=== PATIENT | male | born 2005 | race Caucasian/White ===

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

== ENCOUNTER 2023-03-25 14:28 | Outpatient (REF) | payer SELFPAY ==
--- OUTSIDE RECORDS SUMMARY | 2023-03-25 14:30 | XMS_ITS | Continuity of Care Document ---
Author Name Unknown Organization [facility] Address [address] [place] [address] Care Team Providers Care [employer]ic Name Role Phone [address] Primary Care Physician Encounter [facility] Date(s): 07/06/22 - 07/06/[address] [id number] Encounter Diagnosis Nerve compression syndrome(Discharge Diagnosis) - 07/06/22 Discharge Disposition: Home or Self Care Attending Physician: Horacio Terrazas MD Admitting Physician: Horacio Terrazas MD Allergies, Adverse Reactions, Alerts No Known Medication Allergies Functional Status 07/06/22 Family Member Travel History No recent t ravel Recent Travel History No recent travel Other exposure to Infectious Disease Non e Immunizations Given and Recorded Vaccine Date Status Refusal Reason meningococcal conjugate vaccine 03/19/20 Recorded meningococcal conjugate vaccine 11/08/14 Recorded human papillomavirus vaccine 03/09/18 Recorded human papillomavirus vaccine 11/13/15 Recorded tetanus/diphth/pertuss (Tdap) adult/adol 11/08/14 Recorded influenza virus vaccine, live 05/24/13 Recorded influenza virus vaccine, live 04/22/12 Recorded influenza virus vaccine, inactivated 03/27/10 Juliano rded influenza virus vaccine, inactivated 07/06/06 Juliano rded influenza virus vaccine, inactivated 05/27/06 Jluiano rded influenza virus vaccine, inactivated 03/18/05 Juliano rded Novel [id number], all formulation 05/21/09 Recorded diphtheria/pertussis, acellular/tetanus 08/16/08 R ecorded diphtheria/pertussis, acellular/tetanus 11/19/04 R ecorded poliovirus vaccine, inactivated 08/16/08 Recorded measles/mumps/rubella virus vaccine 08/08/07 Recor ded measles/mumps/rubella virus vaccine 04/29/04 Recor ded varicella virus vaccine 08/08/07 Recorded varicella virus vaccine 09/16/04 Recorded haemophilus b conjugate (PRP-T) vaccine 11/19/04 R ecorded haemophilus b conjugate (PRP-T) vaccine 03 R ecorded haemophilus b conjugate (PRP-T) vaccine 03 R ecorded haemophilus b conjugate (PRP-T) vaccine 03 R ecorded pneumococcal 7-valent vaccine 09/16/04 Recorded pneumococcal 7-valent vaccine 01/23/04 Recorded pneumococcal 7-valent vaccine 03 Recorded pneumococcal 7-valent vaccine 03 Recorded diphth/tetanus/pertussis,acel/hepB/polio 03 Recorded diphth/tetanus/pertussis,acel/hepB/polio 03 Recorded diphth/tetanus/pertussis,acel/hepB/polio 03 Recorded hepatitis B pediatric vaccine 03 Recorded Vital Signs Most recent to oldest [Reference Range]: 1 Temperature Temporal Artery [36-38 Deg C ] 36.8 Deg C (07/06/22 4:59 PM) Peripheral Pulse Rate [60-100 bpm] 66 bp m (07/06/22 4:59 PM) Respiratory Rate [12-24 br/min] 16 br/mi n (07/06/22 4:59 PM) Blood Pressure [90-140/60-90 mmHg] 140/7 6mmHg (07/06/22 4:59 PM) Weight 80.00 kg (07/06/22 4:59 PM) Weight Dosing 80.00 kg (07/06/22 5:07 PM) Height 177.000 cm (07/06/22 4:59 PM) Height/Length Dosing 177.000 cm (07/06/22 5:07 PM) Body Mass Index 26.000 kg/m2 (07/06/22 4:59 PM) Body Mass Index Percentile 82.43 1 (07/06/22 4:59 PM) 1Result Comment: ^~:!Percentile Source -CDC Social History Social History Type Response Tobacco Never tobacco user T obacco Use:. Sex Male Hospital Discharge Instructions Patient Education 07/06/2022 18:37:31 Pinched Nerve Pinched Nerve A pinched nerve is an injury that occurs when too much pressure is placed on a nerve. This pressurecan cause pain, burning, and muscle weakness in places that the nerve supplies feeling to, such as an arm, hand, or leg, or the back or neck. If a nerve is severely pinched or has been pinched for a long time, permanent nerve damage can occur. What are the causes? This condition may be caused by: ??? A nerve passing through a narrow area between bones or other body structures. ??? Arthritis that causes bones to press on a nerve. ??? Loss of blood supply to a nerve. ??? A nerve being stretched from an injury. ??? A sudden injury with swelling. ??? Long-term wear on the nerve. ??? Age-related changes in the spine. What are the signs or symptoms? The most common symptoms of a pinched nerve are feeling a tingling sensation and numbness. Other symptoms include: ??? Pain that spreads from one area of the body part to another. ??? A burning feeling. ??? Muscle weakness. How is this diagnosed? This condition may be diagnosed based on: ??? A physical exam. During the exam, your health care provider will: ??? Check for numbness and muscle weakness. ??? Move affected body parts to test for pain. ??? X-rays to check for bone damage. ??? A MRI or CT scan to check for conditions that may be causing nerve damage. ??? A muscle test (electromyogram, EMG) to evaluate how your muscles and nerves communicate. How is this treated? A pinched nerve is usually treated first by: ??? Resting the affected body area. ??? Using devices to help you move without pain (supportive or protective devices), such as a splint, brace, or neck collar. Other treatments depend on your symptoms and the amount of nerve damage you have. Other treatments may include: ??? Medicines, such as: ??? Injections of numbing medicine. ??? NSAIDs. ??? Pain medicines. ??? Steroid medicines. These may be given as a pill or as an injection. ??? Physical therapy to relieve pain, maintain movement, and improve muscle strength. ??? Surgery. This may be done if other treatments do not work. Follow these instructions at home: ??? Take kbic-amh-bdfxalh and prescription medicines only as told by your health care provider. ??? Wear supportive or protective devices as told by your health care provider. ??? Do physical therapy exercises as directed. ??? Ask your health care provider what activities are safe for you. ??? Rest as needed. ??? If directed, put ice on the affected area: ??? Put ice in a plastic bag. ??? Place a towel between your skin and the bag. ??? Leave the ice on for 20 minutes, 2???3 times a day. ??? If directed, apply heat to the affected area. Use the heat source that your health care provider recommends, such as a moist heat pack or a heating pad. ??? Place a towel between your skin and the heat source. ??? Leave the heat on for 20???30 minutes. ??? Remove the heat if your skin turns bright red. This is especially important if you are unable to feel pain, heat, or cold. You may have a greater risk of getting burned. ??? Do not drive or use heavy machinery while taking prescription pain medicine. ??? Keep all follow-up visits as told by your health care provider. This is important. Contact a health care provider if: ??? Your condition does not improve with treatment. ??? Your pain, numbness, or weakness suddenly gets worse. Get help right away if you: ??? Have loss of bladder control (urinary incontinence) or you cannot urinate. ??? Cannot control bowel movements (fecal incontinence). ??? Have new weakness in your arms or legs. Summary ??? A pinched nerve is an injury that occurs when too much pressure is placed on a nerve. ??? This pressure can cause pain, burning, and muscle weakness in places that the nerve supplies feeling to, such as an arm, hand, or leg, or the back or neck. ??? Take qkfl-zqd-gylibes and prescription medicines only as told by your health care provider. ??? Ask your health care provider what activities are safe for you while you are having symptoms. This information is not intended to replace advice given to you by your health care provider. Make sure you discuss any questions you have with your health care provider. Document Revised: 06/10/2018 Document Reviewed: 06/07/2018 [email or web address] Patient Education ?? 2021 [employer]. 07/06/2022 18:37:27 Peripheral Neuropathy Peripheral Neuropathy Peripheral neuropathy is a type of nerve damage. It affects nerves that carry signals between the spinal cord and the arms, legs, and the rest of the body (peripheral nerves). It does not affect nerves in the spinal cord or brain. In peripheral neuropathy, one nerve or a group of nerves may be damaged. Peripheral neuropathy is a broad category that includes many specific nerve disorders, like diabetic neuropathy, hereditary neuropathy, and carpal tunnel syndrome. What are the causes? This condition may be caused by: ??? Diabetes. This is the most common cause of peripheral neuropathy. ??? Nerve injury. ??? Pressure or stress on a nerve that lasts a long time. ??? Lack (deficiency) of B vitamins. This can result from alcoholism, poor diet, or a restricted diet. ??? Infections. ??? Autoimmune diseases, such as rheumatoid arthritis and systemic lupus erythematosus. ??? Nerve diseases that are passed from parent to child (inherited). ??? Some medicines, such as cancer medicines (chemotherapy). ??? Poisonous (toxic) substances, such as lead and mercury. ??? Too little blood flowing to the legs. ??? Kidney disease. ??? Thyroid disease. In some cases, the cause of this condition is not known. What are the signs or symptoms? Symptoms of this condition depend on which of your nerves is damaged. Common symptoms include: ??? Loss of feeling (numbness) in the feet, hands, or both. ??? Tingling in the feet, hands, or both. ??? Burning pain. ??? Very sensitive skin. ??? Weakness. ??? Not being able to move a part of the body (paralysis). ??? Muscle twitching. ??? Clumsiness or poor coordination. ??? Loss of balance. ??? Not being able to control your bladder. ??? Feeling dizzy. ??? Sexual problems. How is this diagnosed? Diagnosing and finding the cause of peripheral neuropathy can be difficult. Your health care provider will take your medical history and do a physical exam. A neurological exam will also be done. This involves checking things that are affected by your brain, spinal cord, and nerves (nervous system). For example, your health care provider will check your reflexes, how you move, and what you can feel. You may have other tests, such as: ??? Blood tests. ??? Electromyogram (EMG) and nerve conduction tests. These tests check nerve function and how well the nerves are controlling the muscles. ??? Imaging tests, such as CT scans or MRI to rule out other causes of your symptoms. ??? Removing a small piece of nerve to be examined in a lab (nerve biopsy). ??? Removing and examining a small amount of the fluid that surrounds the brain and spinal cord (lumbar puncture). How is this treated? Treatment for this condition may involve: ??? Treating the underlying cause of the neuropathy, such as diabetes, kidney disease, or vitamin deficiencies. ??? Stopping medicines that can cause neuropathy, such as chemotherapy. ??? Medicine to help relieve pain. Medicines may include: ??? Prescription or sgaq-quk-crlzklg pain medicine. ??? Antiseizure medicine. ??? Antidepressants. ??? Pain-relieving patches that are applied to painful areas of skin. ??? Surgery to relieve pressure on a nerve or to destroy a nerve that is causing pain. ??? Physical therapy to help improve movement and balance. ??? Devices to help you move around (assistive devices). Follow these instructions at home: Medicines ??? Take mrta-jnu-mxevzqb and prescription medicines only as told by your health care provider. Do not take any other medicines without first asking your health care provider. ??? Do not drive or use heavy machinery while taking prescription pain medicine. Lifestyle ??? Do not use any products that contain nicotine or tobacco, such as cigarettes and e-cigarettes. Smoking keeps blood from reaching damaged nerves. If you need help quitting, ask your health care provider. ??? Avoid or limit alcohol. Too much alcohol can cause a vitamin B deficiency, and vitamin B is needed for healthy nerves. ??? Eat a healthy diet. This includes: ??? Eating foods that are high in fiber, such as fresh fruits and vegetables, whole grains, and beans. ??? Limiting foods that are high in fat and processed sugars, such as fried or sweet foods. General instructions ??? If you have diabetes, work closely with your health care provider to keep your blood sugar under control. ??? If you have numbness in your feet: ??? Check every day for signs of injury or infection. Watch for redness, warmth, and swelling. ??? Wear padded socks and comfortable shoes. These help protect your feet. ??? Develop a good support system. Living with peripheral neuropathy can be stressful. Consider talking with a mental health specialist or joining a support group. ??? Use assistive devices and attend physical therapy as told by your health care provider. This may include using a walker or a cane. ??? Keep all follow-up visits as told by your health care provider. This is important. Contact a health care provider if: ??? You have new signs or symptoms of peripheral neuropathy. ??? You are struggling emotionally from dealing with peripheral neuropathy. ??? Your pain is not well-controlled. Get help right away if: ??? You have an injury or infection that is not healing normally. ??? You develop new weakness in an arm or leg. ??? You have fallen or do so frequently. Summary ??? Peripheral neuropathy is when the nerves in the arms, or legs are damaged, resulting in numbness, weakness, or pain. ??? There are many causes of peripheral neuropathy, including diabetes, pinched nerves, vitamin deficiencies, autoimmune disease, and hereditary conditions. ??? Diagnosing and finding the cause of peripheral neuropathy can be difficult. Your health care provider will take your medical history, do a physical exam, and do tests, including blood tests and nerve function tests. ??? Treatment involves treating the underlying cause of the neuropathy and taking medicines to helpcontrol pain. Physical therapy and assistive devices may also help. This information is not intended to replace advice given to you by your health care provider. Make sure you discuss any questions you have with your health care provider. Document Revised: 03/04/2021 Document Reviewed: 03/04/2021 [employer] Patient Education ?? 2021 [email or web address] Follow Up Care 07/06/2022 16:59:09 With:[address] Address: [address] [place] [address]- When:1 month Physician Emergency department Note * Fab Chris MD: PERFORM Event Display: ED Note Physician Authored Date: [id number] JASPREET ALVARADO :2005 Age:17 years Sex:Male Visit Date:07/06/2022 Primary Care Physician: Km [address] Basic Information Time Seen: Fab Chris MD / 07/06/2022 17:08 Chief Complaint Right arm pain since waking this morning. ??Pt does not recall any trauma to arm. Pt did see Dr. [address] this morning who examined arm. ??Pt states pain is becoming worse on movement. History Of Present Illness: 17-year-old male??previously healthy presents with right arm pain.?This started this morning??when patient woke up. ??He went to bed asymptomatic last night and woke up with the pain, located??from his right shoulder down to his right elbow, has been getting slightly worse throughout the day. ??Took ibuprofen in the morning 200 mg had relief??but then the pain has been getting worse. ??He has??worsening pain with particular movements.?? No chest pain or shortness of breath with this no fevers nausea vomiting abdominal pain??or any other symptoms. ??No acute trauma. Review of Systems: Right upper extremity pain Physical Exam Vitals & Measurements T:??36.8?C ??(Temporal Artery)?? HR:??66??(Peripheral)?? RR:??16?? BP:??140/76?? SpO2:??99%?? HT:??177.000??cm?? WT:??80.00??kg?? BMI:??26.000?? BMI:??82.43??(Percentile)?? General: Alert and oriented, well nourished,?No??acute distress Eye: PERRL, EOMI,?Normal??conjunctiva HENT: Normocephalic Lungs: Clear to auscultation and percussion,?Non-labored?? respiration Heart:?Normal?? rate,?Regular??rhythm,?No??murmur,?No??gallop,?No??edema Abdomen: Soft, non-tender, non-distended,?Normal?? bowel sounds,?No??masses Musculoskeletal:??Normal range of motion of the right shoulder??anteriorly and flexion, radial pulse of the right upper extremity is normal, perfusion is adequate and cap refill normal and color is normal compared to the left??arm, motor and sensory exam right upper extremity is normal Skin: Skin is warm, dry and pink,?No??rashes,?No??lesions Neurologic: Awake, alert Medical Decision Makin-year-old male presents with right upper extremity pain.?Pain started when patient woke up this morning from sleep, pain was atraumatic in nature.?? 36.8, 140/76, 66, 16, 99%.?? Patient clinically has no evidence of erythema or crepitus or??any external abnormalities of the arm itself.?? Radial pulses strong in the right upper extremity, motor and??sensory exam of the right upper extremity is normal.?? Radiographs of the chest and right shoulder do not show fracture or dislocation. ??On repeat exam he does feel better after ibuprofen and Tylenol essentially asymptomatic.?? Given the reassuring vascular exam and overall well appearance,??etiology is most likely secondary to nerve inga edinson??from??particular sleeping position not compromised??right upper extremity.?? I do not suspecta vascular cause of his??pain at this time given the normal radial pulse and vascular exam, CT was considered for this but ultimately??was not clinically warranted.?? Primary care follow-up if??symptoms are improving but still persistent.?? Instructed him to come back to the ER if his symptoms werepersistent over the next 1 to 2 days or getting worse. ??Discharged in stable condition return precautions to the ER. Procedure No Qualifying Data Assessment/Plan 1.??Nerve compression syndrome??G58.9 Ordered: Discharge Patient, 07/06/22 19:37:00 EST, Home Independently, Constant Indicator ?? Patient Education Pinched Nerve Peripheral Neuropathy Follow Up With When Contact Information [address] Within 1 month [facility] [address] [facility] [address] [place] [address]- Additional Instructions: Problem List/Past Medical History Ongoing No qualifying data Historical No qualifying data Medication Administration Given acetaminophen, 500 mg, Oral ibuprofen, 800 mg, Oral Allergies No Known Medication Allergies Social History Electronic Cigarette/Vaping Electronic Cigarette Use: Never. Tobacco Never tobacco user Tobacco Use:. Electronically Signed on 07/06/22 07:37 PM Fab Chris MD Emergency department Discharge instructions * Fab Chris MD: PERFORM Event Display: ED Discharge Information Authored Date: [id number] CHRISTIANO JASPREET :2005 Age:17 years Sex:Male Visit Date:07/06/2022 Primary Care Physician: Km Street Discharge Instructions We would like to thank you for allowing us to assist you with your healthcare needs. The following includes patient education materials and information regarding your injury/illness. Diagnosis from Today's Visit Nerve compression syndrome Discharge Vitals Temperature??(Temporal Artery) 98.2 ??F (36.8 ??C) Heart Rate??(Peripheral) 66 Respiratory Rate?? 16 Blood Pressure?? 140/76?? Height?? 69.69 in (177.000 cm) Weight?? 176.40 lb (80.00 kg) BMI?? 26.000 Allergies No Known Medication Allergies What to Do Next You Need to Schedule the Following Appointments Follow Up with??Km [address] When:??Within 1 month Where: [facility] [address] [facility] [address] [place] [address]- You were treated today on an emergency basis; it may be nina to contact your primary care provider to notify them of your visit today. You may have been referred to your regular doctor or a specialist, please follow up as instructed. If your condition worsens or you can't get in to see the doctor, contact the Emergency Department. Education Materials Pinched Nerve A pinched nerve is an injury that occurs when too much pressure is placed on a nerve. This pressurecan cause pain, burning, and muscle weakness in places that the nerve supplies feeling to, such as an arm, hand, or leg, or the back or neck. If a nerve is severely pinched or has been pinched for a long time, permanent nerve damage can occur. What are the causes? This condition may be caused by: ? A nerve passing through a narrow area between bones or other body structures. ? Arthritis that causes bones to press on a nerve. ? Loss of blood supply to a nerve. ? A nerve being stretched from an injury. ? A sudden injury with swelling. ? Long-term wear on the nerve. ? Age-related changes in the spine. What are the signs or symptoms? The most common symptoms of a pinched nerve are feeling a tingling sensation and numbness. Other symptoms include: ? Pain that spreads from one area of the body part to another. ? A burning feeling. ? Muscle weakness. How is this diagnosed? This condition may be diagnosed based on: ? A physical exam. During the exam, your health care provider will: ? Check for numbness and muscle weakness. ? Move affected body parts to test for pain. ? X-rays to check for bone damage. ? A MRI or CT scan to check for conditions that may be causing nerve damage. ? A muscle test (electromyogram, EMG) to evaluate how your muscles and nerves communicate. How is this treated? A pinched nerve is usually treated first by: ? Resting the affected body area. ? Using devices to help you move without pain (supportive or protective devices), such as a splint, brace, or neck collar. Other treatments depend on your symptoms and the amount of nerve damage you have. Other treatments may include: ? Medicines, such as: ? Injections of numbing medicine. ? NSAIDs. ? Pain medicines. ? Steroid medicines. These may be given as a pill or as an injection. ? Physical therapy to relieve pain, maintain movement, and improve muscle strength. ? Surgery. This may be done if other treatments do not work. Follow these instructions at home: ? Take dcfe-pwx-ihouuqx and prescription medicines only as told by your health care provider. ? Wear supportive or protective devices as told by your health care provider. ? Do physical therapy exercises as directed. ? Ask your health care provider what activities are safe for you. ? Rest as needed. ? If directed, put ice on the affected area: ? Put ice in a plastic bag. ? Place a towel between your skin and the bag. ? Leave the ice on for 20 minutes, 2???3 times a day. ? If directed, apply heat to the affected area. Use the heat source that your health care provider recommends, such as a moist heat pack or a heating pad. ? Place a towel between your skin and the heat source. ? Leave the heat on for 20???30 minutes. ? Remove the heat if your skin turns bright red. This is especially important if you are unable to feel pain, heat, or cold. You may have a greater risk of getting burned. ? Do not drive or use heavy machinery while taking prescription pain medicine. ? Keep all follow-up visits as told by your health care provider. This is important. Contact a health care provider if: ? Your condition does not improve with treatment. ? Your pain, numbness, or weakness suddenly gets worse. Get help right away if you: ? Have loss of bladder control (urinary incontinence) or you cannot urinate. ? Cannot control bowel movements (fecal incontinence). ? Have new weakness in your arms or legs. Summary ? A pinched nerve is an injury that occurs when too much pressure is placed on a nerve. ? This pressure can cause pain, burning, and muscle weakness in places that the nerve supplies feeling to, such as an arm, hand, or leg, or the back or neck. ? Take fjba-jng-ihvbeaj and prescription medicines only as told by your health care provider. ? Ask your health care provider what activities are safe for you while you are having symptoms. This information is not intended to replace advice given to you by your health care provider. Make sure you discuss any questions you have with your health care provider. Document Revised: 06/10/2018 Document Reviewed: 06/07/2018 [employer] Patient Education ?? 2021 [email or web address] Peripheral Neuropathy Peripheral neuropathy is a type of nerve damage. It affects nerves that carry signals between the spinal cord and the arms, legs, and the rest of the body (peripheral nerves). It does not affect nerves in the spinal cord or brain. In peripheral neuropathy, one nerve or a group of nerves may be damaged. Peripheral neuropathy is a broad category that includes many specific nerve disorders, like diabetic neuropathy, hereditary neuropathy, and carpal tunnel syndrome. What are the causes? This condition may be caused by: ? Diabetes. This is the most common cause of peripheral neuropathy. ? Nerve injury. ? Pressure or stress on a nerve that lasts a long time. ? Lack (deficiency) of B vitamins. This can result from alcoholism, poor diet, or a restricted diet. ? Infections. ? Autoimmune diseases, such as rheumatoid arthritis and systemic lupus erythematosus. ? Nerve diseases that are passed from parent to child (inherited). ? Some medicines, such as cancer medicines (chemotherapy). ? Poisonous (toxic) substances, such as lead and mercury. ? Too little blood flowing to the legs. ? Kidney disease. ? Thyroid disease. In some cases, the cause of this condition is not known. What are the signs or symptoms? Symptoms of this condition depend on which of your nerves is damaged. Common symptoms include: ? Loss of feeling (numbness) in the feet, hands, or both. ? Tingling in the feet, hands, or both. ? Burning pain. ? Very sensitive skin. ? Weakness. ? Not being able to move a part of the body (paralysis). ? Muscle twitching. ? Clumsiness or poor coordination. ? Loss of balance. ? Not being able to control your bladder. ? Feeling dizzy. ? Sexual problems. How is this diagnosed? Diagnosing and finding the cause of peripheral neuropathy can be difficult. Your health care provider will take your medical history and do a physical exam. A neurological exam will also be done. This involves checking things that are affected by your brain, spinal cord, and nerves (nervous system). For example, your health care provider will check your reflexes, how you move, and what you can feel. You may have other tests, such as: ? Blood tests. ? Electromyogram (EMG) and nerve conduction tests. These tests check nerve function and how well the nerves are controlling the muscles. ? Imaging tests, such as CT scans or MRI to rule out other causes of your symptoms. ? Removing a small piece of nerve to be examined in a lab (nerve biopsy). ? Removing and examining a small amount of the fluid that surrounds the brain and spinal cord (lumbarpuncture). How is this treated? Treatment for this condition may involve: ? Treating the underlying cause of the neuropathy, such as diabetes, kidney disease, or vitamin deficiencies. ? Stopping medicines that can cause neuropathy, such as chemotherapy. ? Medicine to help relieve pain. Medicines may include: ? Prescription or ztge-cyz-zcuhkin pain medicine. ? Antiseizure medicine. ? Antidepressants. ? Pain-relieving patches that are applied to painful areas of skin. ? Surgery to relieve pressure on a nerve or to destroy a nerve that is causing pain. ? Physical therapy to help improve movement and balance. ? Devices to help you move around (assistive devices). Follow these instructions at home: Medicines ? Take dzas-ysl-fgncddq and prescription medicines only as told by your health care provider. Do not take any other medicines without first asking your health care provider. ? Do not drive or use heavy machinery while taking prescription pain medicine. Lifestyle ? Do not use any products that contain nicotine or tobacco, such as cigarettes and e-cigarettes. Smoking keeps blood from reaching damaged nerves. If you need help quitting, ask your health care provider. ? Avoid or limit alcohol. Too much alcohol can cause a vitamin B deficiency, and vitamin B is needed for healthy nerves. ? Eat a healthy diet. This includes: ? Eating foods that are high in fiber, such as fresh fruits and vegetables, whole grains, and beans. ? Limiting foods that are high in fat and processed sugars, such as fried or sweet foods. General instructions ? If you have diabetes, work closely with your health care provider to keep your blood sugar under control. ? If you have numbness in your feet: ? Check every day for signs of injury or infection. Watch for redness, warmth, and swelling. ? Wear padded socks and comfortable shoes. These help protect your feet. ? Develop a good support system. Living with peripheral neuropathy can be stressful. Consider talkingwith a mental health specialist or joining a support group. ? Use assistive devices and attend physical therapy as told by your health care provider. This may include using a walker or a cane. ? Keep all follow-up visits as told by your health care provider. This is important. Contact a health care provider if: ? You have new signs or symptoms of peripheral neuropathy. ? You are struggling emotionally from dealing with peripheral neuropathy. ? Your pain is not well-controlled. Get help right away if: ? You have an injury or infection that is not healing normally. ? You develop new weakness in an arm or leg. ? You have fallen or do so frequently. Summary ? Peripheral neuropathy is when the nerves in the arms, or legs are damaged, resulting in numbness, weakness, or pain. ? There are many causes of peripheral neuropathy, including diabetes, pinched nerves, vitamin deficiencies, autoimmune disease, and hereditary conditions. ? Diagnosing and finding the cause of peripheral neuropathy can be difficult. Your health care provider will take your medical history, do a physical exam, and do tests, including blood tests and nervefunction tests. ? Treatment involves treating the underlying cause of the neuropathy and taking medicines to help control pain. Physical therapy and assistive devices may also help. This information is not intended to replace advice given to you by your health care provider. Make sure you discuss any questions you have with your health care provider. Document Revised: 03/04/2021 Document Reviewed: 03/04/2021 [employer] Patient Education ?? 2021 [employer] Tests Performed Medications and Immunizations Administered Given acetaminophen, 500 mg, Oral ibuprofen, 800 mg, Oral Patient/Debt Counselor Signature Patient Name:JASPREET ALVARADO I have received this information and my questions have been answered. Patient/Debt Counselor Name: Patient/Debt Counselor Signature: Relationship to Patient: Witness Name/Signature: Date: Electronically Signed on: 07/06/2022 19:37 ESTSigned by:[facility] Emergency department Note * Carli Bennett: PERFORM Event Display: ED Notes Authored Date: [id number] Patient Care team information Personnel Name: Km [address] Address: Address: [address] [place] [address]-
--- OUTSIDE RECORDS SUMMARY | 2023-03-25 14:30 | XMS_ITS | Continuity of Care Document ---
Author Name Unknown Organization [facility] Address [address] [place] [address] Care Team Providers Care Loss Prevention Specialist Name Role Phone [address] Primary Care Physician Encounter [facility] Date(s): 07/15/22 - 07/15/[address] [phone] Encounter Diagnosis Muscle ache(Discharge Diagnosis) - 07/15/22 Discharge Disposition: Home or Self Care Attending Physician: Horacio Terrazas MD Admitting Physician: Horacio Terrazas MD Allergies, Adverse Reactions, Alerts No Known Medication Allergies Assessment and Plan Extracted from: Title:Clinical Document Author:Karen Anderson te:07/15/22 Diagnosis: 1. Muscle ache Comment: Diagnosis: Arm pain-swelling Comment: Diagnosis: Leg pain-swelling Comment: Functional Status 07/15/22 Family Member Travel History No recent t [...] Juliano rded influenza virus vaccine, inactivated 05/27/06 Juliano rded influenza virus vaccine, inactivated 03/18/05 Juliano rded Novel [id number], all formulation 05/21/09 Recorded diphtheria/pertussis, acellular/tetanus 08/16/08 [...] Temperature Temporal Artery [36-38 Deg C ] 36.6 Deg C (07/15/22 6:30 AM) Peripheral Pulse Rate [60-100 bpm] 66 bp m (07/15/22 6:30 AM) Respiratory Rate [12-24 br/min] 18 br/mi n (07/15/22 6:30 AM) Blood Pressure [90-140/60-90 mmHg] 127/7 1mmHg (07/15/22 6:30 AM) Weight Dosing 85.00 kg (07/15/22 6:48 AM) Weight Estimated 85.00 kg (07/15/22 6:30 AM) Height/Length Dosing 177.000 cm (07/15/22 6:48 AM) Height/Length Estimated 177.000 cm (07/15/22 6:30 AM) Social History Social History Type Response Tobacco Never tobacco user T obacco Use:. Sex Male Hospital Discharge Instructions Patient Education 07/15/2022 06:37:45 Muscle Pain, Adult Muscle Pain, Adult Muscle pain, also called myalgia, is a condition in which a person has pain in one or more muscles in the body. Muscle pain may be mild, moderate, or severe. It may feel sharp, achy, or burning. In most cases, the pain lasts only a short time and goes away without treatment. Muscle pain can result from using muscles in a new or different way or after a period of inactivity. It is normal to feel some muscle pain after starting an exercise program. Muscles that have not been used often will be sore at first. What are the causes? This condition is caused by using muscles in a new or different way after a period of inactivity. Other causes may include: ??? Overuse or muscle strain, especially if you are not in shape. This is the most common cause of muscle pain. ??? Injury or bruising. ??? Infectious diseases, including diseases caused by viruses, such as the flu (influenza). ??? Fibromyalgia.This is a long-term, or chronic, condition that causes muscle tenderness, tiredness (fatigue), and headache. ??? Autoimmune or rheumatologic diseases. These are conditions, such as lupus, in which the body's defense system (immunesystem) attacks areas in the body. ??? Certain medicines, including FLAKITO inhibitors and statins. What are the signs or symptoms? The main symptom of this condition is sore or painful muscles, including during activity and when stretching. You may also have slight swelling. How is this diagnosed? This condition is diagnosed with a physical exam. Your health care provider will ask questions about your pain and when it began. If you have not had muscle pain for very long, your health care provider may want to wait before doing much testing. If your muscle pain has lasted a long time, tests may be done right away. In some cases, this may include tests to rule out certain conditions or illnesses. How is this treated? Treatment for this condition depends on the cause. Home care is often enough to relieve muscle pain. Your health care provider may also prescribe NSAIDs, such as ibuprofen. Follow these instructions at home: Medicines ??? Take [id number]-[id number] and prescription medicines only as told by your health care provider. ??? Ask your health care provider if the medicine prescribed to you requires you to avoid driving or using machinery. Managing pain, swelling, and discomfort ??? If directed, put ice on the painful area. To do this: ??? Put ice in a plastic bag. ??? Place a towel between your skin and the bag. ??? Leave the ice on for 20 minutes, 2???3 times a day. ??? For the first 2 days of muscle soreness, or if there is swelling: ??? Do not soak in hot baths. ??? Do not use a hot tub, steam room, sauna, heating pad, or other heat source. ??? After 48???72 hours, you may alternate between applying ice and applying heat as told by your health care provider. If directed, apply heat to the affected area as often as told by your health care provider. Use the heat source that your health [...] a greater risk of getting burned. ??? If you have an injury, raise (elevate) the injured area above the level of your heart while youare sitting or lying down. Activity ??? If overuse is causing your muscle pain: ??? Slow down your activities until the pain goes away. ??? Do regular, gentle exercises if you are not usually active. ??? Warm up before exercising. Stretch before and after exercising. This can help lower the risk ofmuscle pain. ??? Do not continue working out if the pain is severe. Severe pain could mean that you have injureda muscle. ??? Do not lift anything that is heavier than 5???10 lb (2.3???4.5 kg), or the limit that you are told, until your health care provider says that it is safe. ??? Return to your normal activities as told by your health care provider. Ask your health care provider what activities are safe for you. General instructions ??? Do not use any products that contain nicotine or tobacco, such as cigarettes, e-cigarettes, andchewing tobacco. These can delay healing. If you need help quitting, ask your health care provider. ??? Keep all follow-up visits as told by your health care provider. This is important. Contact a health care provider if you have: ??? Muscle pain that gets worse and medicines do not help. ??? Muscle pain that lasts longer than 3 days. ??? A rash or fever along with muscle pain. ??? Muscle pain after a tick bite. ??? Muscle pain while working out, even though you are in good physical condition. ??? Redness, soreness, or swelling along with muscle pain. ??? Muscle pain after starting a new medicine or changing the dose of a medicine. Get help right away if you have: ??? Trouble breathing. ??? Trouble swallowing. ??? Muscle pain along with a stiff neck, fever, and vomiting. ??? Severe muscle weakness or you cannot move part of your body. These symptoms may represent a serious problem that is an emergency. Do not wait to see if the symptoms will go away. Get medical help right away. Call your local emergency services (911 in the [place] Do not drive yourself to the hospital. Summary ??? Muscle pain usually lasts only a short time and goes away without treatment. ??? This condition is caused by using muscles in a new or different way after a period of inactivity. ??? If your muscle pain lasts longer than 3 days, tell your health care provider. This information is not intended to replace advice given to you by your health care provider. Make sure you discuss any questions you have with your health care provider. Document Revised: 03/01/2020 Document Reviewed: 03/01/2020 [employer] Patient Education ?? 2021 [employer]. Follow Up Care 07/15/2022 06:29:57 With:Follow up with primary care provider Address: When:2 to 4 days Physician Emergency department Note * Marcela Pereira MD: PERFORM Event Display: ED Note Physician Authored Date: [id number] JASPREET ALVARADO :2005 Age:17 years Sex:Male Visit Date:07/15/2022 Primary Care Physician: [address] Basic Information Time Seen: Marcela Pereira MD / 07/15/2022 07:24 Chief Complaint Pt. presents with diffuse pain in billat forearms and calves. Denies trauma. History Of Present Illness: 17M presents to the ED with his with c/o b/l forearm and calves pain. Pt says he noticed pain at the end of his work day yesterday. 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 This morning when he woke up pain was worse. Pt has no numbness/tingling or difficulty walking. No swelling of the extremities. No fever/chills. No n/v/c/d. No MO or neck pain. Physical Exam Vitals & Measurements T:??36.6?C ??(Temporal Artery)?? HR:??66??(Peripheral)?? RR:??18?? BP:??127/71?? SpO2:??97%?? HT:??177.000??cm?? WT:??85.00??kg??(Estimated)?? General: A&Ox3, Calm, no apparent distress, well developed, pleasant and cooperative ?? HEENT: Head ATNC. Eyes: DAYRON. Extraocular Mobility: intact and symmetrical. Conjunctiva: non-injected, anicteric, no discharge. Oral Cavity: moist. Neck: no masses, no crepitus. Lymph Nodes: no cervical lymphadenopathy? Respiratory: CTA bilaterally, no wheezing, no rales/crackles? CV: RRR, normal S1, normal S2, no murmurs, rubs or gallops ?? Abdomen : soft, non-tender, non-distended, no rebound or guarding, no hepatosplenomegaly ?? Extremities:?? mild ttp??over the b/l forearm and calf muscles. no??extremity swelling, all extremities area warm and well-perfused, no cyanosis, capillary refill <2 seconds? Skin: no rash, no lesions, no bruising? Neuro: normal tone, normal strength in all 4 extremities, sensation intact?? Medical Decision MakinM presents to the ED with his with c/o b/l forearm and calves pain. Pt is well and non toxic appearing with reassuring VS Pt is neurologically intact Pain appears to be muscular in origin Pt declines analgesia at this time, hes says he has Tylenol and Ibuprofen at home Encouraged to f/u with pcp in a few days if pain does not improve, return precautions discussed, all questions answered Procedure No Qualifying Data Assessment/Plan 1.??Muscle ache??M79.10 Ordered: Discharge Patient, 07/15/22 7:38:00 EST, Constant Indicator ?? Patient Education Muscle Pain, Adult Follow Up With When Contact Information Follow up with primary care provider Within 2 to 4 days Additional Instructions: Problem List/Past Medical History Ongoing No qualifying data Historical No qualifying data Allergies No Known Medication Allergies Social History Electronic Cigarette/Vaping Electronic Cigarette Use: Never. Tobacco Never tobacco user Tobacco Use:. Electronically Signed on 07/15/22 07:51 AM Marcela Pereira MD Emergency department Discharge instructions * Marcela Pereira MD: PERFORM Event Display: ED Discharge Information Authored Date: [id number] CHRISTIANO JASPREET :2005 Age:17 years Sex:Male Visit Date:07/15/2022 Primary Care Physician: [address] Discharge Instructions We would like to thank you for allowing us to assist you with your healthcare needs. The following includes patient education materials and information regarding your injury/illness. Diagnosis from Today's Visit Muscle ache Discharge Vitals Temperature??(Temporal Artery) 97.9 ??F (36.6 ??C) Heart Rate??(Peripheral) 66 Respiratory Rate?? 18 Blood Pressure?? 127/71?? Height?? 69.69 in (177.000 cm) Weight??(Estimated) 187.42 lb (85.00 kg) Allergies No Known Medication Allergies What to Do Next Instructions from Your Care Team Please take Tylenol 650mg every 8 hours and/or Ibuprofen 400mg every 8 hours for your pain. Follow up with your primary care provider in a few days if it persists. Return to the ED for any new or worsening symptoms. You Need to Schedule the Following Appointments Follow Up with??Follow up with primary care provider When:??Within 2 to 4 days You were treated today on an emergency basis; it may be nina to contact your primary care provider to notify them of your visit today. You may have been referred to your regular doctor or a specialist, please follow up as instructed. If your condition worsens or you can't get in to see the doctor, contact the Emergency Department. Education Materials Muscle Pain, Adult Muscle pain, also called myalgia, is a condition in which a person has pain in one or more muscles in the body. Muscle pain may be mild, moderate, or severe. It may feel sharp, achy, or burning. In most cases, the pain lasts only a short time and goes away without treatment. Muscle pain can result from using muscles in a new or different way or after a period of inactivity. It is normal to feel some muscle pain after starting an exercise program. Muscles that have not been used often will be sore at first. What are the causes? This condition is caused by using muscles in a new or different way after a period of inactivity. Other causes may include: ? Overuse or muscle strain, especially if you are not in shape. This is the most common cause of muscle pain. ? Injury or bruising. ? Infectious diseases, including diseases caused by viruses, such as the flu (influenza). ? Fibromyalgia.This is a long-term, or chronic, condition that causes muscle tenderness, tiredness (fatigue), and headache. ? Autoimmune or rheumatologic diseases. These are conditions, such as lupus, in which the body's defense system (immunesystem) attacks areas in the body. ? Certain medicines, including FLAKITO inhibitors and statins. What are the signs or symptoms? The main symptom of this condition is sore or painful muscles, including during activity and when stretching. You may also have slight swelling. How is this diagnosed? This condition is diagnosed with a physical exam. Your health care provider will ask questions about your pain and when it began. If you have not had muscle pain for very long, your health care provider may want to wait before doing much testing. If your muscle pain has lasted a long time, tests may be done right away. In some cases, this may include tests to rule out certain conditions or illnesses. How is this treated? Treatment for this condition depends on the cause. Home care is often enough to relieve muscle pain. Your health care provider may also prescribe NSAIDs, such as ibuprofen. Follow these instructions at home: Medicines ? Take vqbz-epa-cyhbbhr and prescription medicines only as told by your health care provider. ? Ask your health care provider if the medicine prescribed to you requires you to avoid driving or using machinery. Managing pain, swelling, and discomfort ? If directed, put ice on the painful area. To do this: ? Put ice in a plastic bag. ? Place a towel between your skin and the bag. ? Leave the ice on for 20 minutes, 2???3 times a day. ? For the first 2 days of muscle soreness, or if there is swelling: ? Do not soak in hot baths. ? Do not use a hot tub, steam room, sauna, heating pad, or other heat source. ? After 48???72 hours, you may alternate between applying ice and applying heat as told by your health care provider. If directed, apply heat to the affected area as often as told by your health care provider. Use the heat source that your health care provider recommends, such as a moist heat pack ora heating pad. ? Place a towel between your skin and the heat source. ? Leave the heat on for 20???30 minutes. ? Remove the heat if your skin turns bright red. This is especially important if you are unable to feel pain, heat, or cold. You may have a greater risk of getting burned. ? If you have an injury, raise (elevate) the injured area above the level of your heart while you aresitting or lying down. Activity ? If overuse is causing your muscle pain: ? Slow down your activities until the pain goes away. ? Do regular, gentle exercises if you are not usually active. ? Warm up before exercising. Stretch before and after exercising. This can help lower the risk of muscle pain. ? Do not continue working out if the pain is severe. Severe pain could mean that you have injured a muscle. ? Do not lift anything that is heavier than 5???10 lb (2.3???4.5 kg), or the limit that you are told,until your health care provider says that it is safe. ? Return to your normal activities as told by your health care provider. Ask your health care provider what activities are safe for you. General instructions ? Do not use any products that contain nicotine or tobacco, such as cigarettes, e- cigarettes, and chewing tobacco. These can delay healing. If you need help quitting, ask your health care provider. ? Keep all follow-up visits as told by your health care provider. This is important. Contact a health care provider if you have: ? Muscle pain that gets worse and medicines do not help. ? Muscle pain that lasts longer than 3 days. ? A rash or fever along with muscle pain. ? Muscle pain after a tick bite. ? Muscle pain while working out, even though you are in good physical condition. ? Redness, soreness, or swelling along with muscle pain. ? Muscle pain after starting a new medicine or changing the dose of a medicine. Get help right away if you have: ? Trouble breathing. ? Trouble swallowing. ? Muscle pain along with a stiff neck, fever, and vomiting. ? Severe muscle weakness or you cannot move part of your body. These symptoms may represent a serious problem that is an emergency. Do not wait to see if the symptoms will go away. Get medical help right away. Call your local emergency services (911 in the [place] Do not drive yourself to the hospital. Summary ? Muscle pain usually lasts only a short time and goes away without treatment. ? This condition is caused by using muscles in a new or different way after a period of inactivity. ? If your muscle pain lasts longer than 3 days, tell your health care provider. This information is not intended to replace advice given to you by your health care provider. Make sure you discuss any questions you have with your health care provider. Document Revised: 03/01/2020 Document Reviewed: 03/01/2020 [employer] Patient Education ?? 2021 [employer] kay Fuentes Patient/Professor Of Latin American Studies Signature Patient Name:JASPREET ALVARADO I have received this information and my questions have been answered. Patient/Professor Of Latin American Studies Name: Patient/Professor Of Latin American Studies Signature: Relationship to Patient: Witness Name/Signature: Date: Electronically Signed on: 07/15/2022 07:38 ESTSigned by:[facility] Discharge summary * Karen Anderson: PERFORM Event Display: Discharge Note Authored Date: [id number] * Karen Anderson: PERFORM Event Display: Discharge Note Authored Date: [id number] Diagnosis: 1. Muscle ache Comment: Diagnosis: Arm pain-swelling Comment: Diagnosis: Leg pain-swelling Comment: Electronically Signed on 07/15/22 08:59 AM Karen Anderson Patient Care team information Personnel Name: [address] Address: Address: [address] [address]- [place]
[2023-03-26 15:27] LABS: Appearance Normal; Container Type 50 mL Conical; Grade 1.5 (>=2.5); Motile/Ejaculate 0.02 x10(6) (>=9.0); Motile/mL 0.03 x10(6) (>=6.0); Motility 30 % (>=40); Semen Volume 0.5 mL (>=1.5); Sperm/mL 0.1 x10(6) (>=15.0); Study Type Semen
== END 2023-03-25 14:29 | disposition home or self-care (01) ==
LOC: NCHCN 14:28
PROVIDERS: Visit Provider Physician Assistant
DX: N46.9 Male infertility, unspecified (principal)
CPT/HCPCS: 89240; 89310

== ENCOUNTER 2023-05-07 14:40 | Emergency (ER) | payer OTHER, SELFPAY ==
[2023-05-07 14:45] VITALS: BP 165/80; PULSE 90; RESP 20; TEMP 36.8; O2SAT 99
--- NOTE | 2023-05-07 14:45 | DI.RAD_ITS ---
Exam(s) XR FINGER RT RING EXAM: XR FINGER RT RING CLINICAL HISTORY: crush injury. TECHNIQUE: 2D digital imaging was performed of the right finger. Three views were obtained. PA/AP, oblique, and lateral views were obtained. COMPARISON: No exams were available for comparison FINDINGS: BONES: There is an acute comminuted mildly displaced fracture of the terminal tuft of the 4th finger. No bony destructive lesion is seen. JOINTS: No dislocation present. SOFT TISSUE: Normal. IMPRESSION: Mildly displaced comminuted fracture of the terminal tuft of the 4th finger. DATA REPOSITORY: RADIATION DOSE DELIVERED:
[2023-05-07] MEDS: Bupivacaine 0.5% Pres-Free 30 ML VIAL IJ (15:09)
--- NOTE | 2023-05-07 15:16 | W.ED.GENAD ---
Discharge Plan Disposition Patient Disposition: Home Discharge Details Clinical Impression: Open finger fracture Primary Care Provider: Unknown,Unknown ED Provider: Ana Luisa Ridley Home Meds and New Rx's Prescriptions: New cephalexin 500 mg capsule 500 mg PO Q6H 7 Days Qty: 28 0RF Discharge Instructions Instructions: Finger Fracture (ED) Additional Instructions: keep wound clean and dry change dressing on wednesday if you are not evaluated at that time take antibiotic as prescribed motrin/tylenol oxycodone is addictive and you should not drive for 8 hours after taking this medication if you do not hear from ortho by wednesday, please call them for follow-up limited use of hand and must keep dry return with spreading redness, fever, worsening pain Stand Alone Forms: Work Release Referrals: Isaias Rowley MD [ [facility] STAFF PHYSICIAN] - Discharge Data Discharge Date/Time-TO BE ENTERED AT DEPARTURE: 05/07/23 17:30 Medical Decision Making <Miriam Hughes NP - Last Filed: 05/11/23 12:23> 18-year-old male presents to the ER with a chief complaint of right ring finger crush injury which occurred just prior to arrival. 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 He does have a laceration noted to the distal tip of his finger which extends through the subcu tissue nail is intact. He reports he is up-to-date on his tetanus vaccination. Distal CMS is intact, he is able to flex his finger, no other associated symptoms or injuries. Bleeding is controlled with a pressure bandage. X-ray Right finger ordered by staffing rn in triage. Digital block performed see procedure note. Procedure successful. IM Cefazolin ordered prior to signout. Care is to be handed off to oncoming provider Ana Luisa Ridley pending x-ray and laceration repair. 1600, care was accepted from yesterday pending x-ray and suture Patient has a tuft fracture per radiology interpretation, laceration was repaired Patient tolerated without incident Given Keflex, will need close outpatient follow-up with orthopedics, placed in a large posterior dressing Return precautions reviewed and patient expressed understanding will need suture removal in 12 days or at the discretion of orthopedics <BROOKE Harley - Last Filed: 05/07/23 19:52> 18-year-old male presents to the ER with a chief complaint of right ring finger crush injury which occurred just prior to arrival. 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 He does have a laceration noted to the distal tip of his finger which extends through the subcu tissue nail is intact. He reports he is up-to-date on his tetanus vaccination. Distal CMS is intact, he is able to flex his finger, no other associated symptoms or injuries. Bleeding is controlled with a pressure bandage. X-ray ordered by staffing rn in triage. Digital block performed see procedure note. Procedure successful. Care is to be handed off to oncoming provider Ana Luisa Ridley pending x-ray and laceration repair. 1600, care was accepted from yesterday pending x-ray and suture Patient has a tuft fracture per radiology interpretation, laceration was repaired Patient tolerated without incident Given Keflex, will need close outpatient follow-up with orthopedics, placed in a large posterior dressing Return precautions reviewed and patient expressed understanding will need suture removal in 12 days or at the discretion of orthopedics Medical Records Medical records reviewed: Yes I reviewed the patient's medical records. HPI <Miriam Hughes NP - Last Filed: 05/11/23 12:23> General Mode of arrival: ambulatory. Date/Time Provider Initiated Documentation: 05/07/23 14:55. Limitations to Documentation: no limitations. Information obtained by: patient, RN notes reviewed and old records reviewed. HPI Narrative: 18-year-old male with no significant past medical history meds or allergies presents to the ER with a chief complaint of right ring finger laceration and crush type injury. This occurred prior to arrival. He does have distal CMS intact upon arrival. He is able to flex and extend the entire digit. No other associated symptoms or signs. No additional complaints. Related Data Home Medications Medication Instructions Recorded Confirmed cephalexin 500 mg capsule 500 mg PO Q6H 7 days #28 caps 05/07/23 Previous Rx's Medication Instructions Recorded cephalexin 500 mg capsule 500 mg PO Q6H 7 days #28 caps 05/07/23 Allergies Allergy/AdvReac Type Severity Reaction Status Date / Time No Known Allergies Allergy Unverified 05/07/23 14:44 General Stated Complaint: Laceration MARSHA: 4 Review of Systems <Miriam Hughes NP - Last Filed: 05/11/23 12:23> Integumentary/Breasts Skin/Breast: Reports wounds (Laceration right index finger as per HPI) PFSH <Miriam Hughes NP - Last Filed: 05/11/23 12:23> All Active Problems (Updated 05/07/23 @ 17:11 by BROOKE Harley) Open finger fracture (Acute) Social History Smoking/Tobacco Use Status: Never Smoking risk assessment performed?: Yes Alcohol Intake: current Alcohol Intake frequency: holidays/special occasions only Alcohol type: beer Drug use: Never Substance use type: does not use Do you feel safe at home: Yes Do you feel safe in your relationship?: Yes Exam <Miriam Hughes NP - Last Filed: 05/11/23 12:23> Extrem General: normal exam except as noted Right upper extremity: wrist and hand Details: laceration 3rd digit distal Details: irregular, avulsion, actively bleeding, involving subcutaneous tissue, with motor nerve function intact and with sensation intact Hand/finger images: 1. Circumferential laceration approximately 1 cm distal avulsion. Nail is intact. Course <Miriam Hughes NP - Last Filed: 05/11/23 12:23> Vital Signs Vital signs: Vital Signs Temperature 36.8 C 05/07/23 14:45 Pulse 90 05/07/23 14:45 Respiratory Rate 20 05/07/23 14:45 Blood Pressure 165/80 H 05/07/23 14:45 Pulse Oximetry 99 05/07/23 14:45 Temperature 36.8 C 05/07/23 14:45 Temperature Source Oral 05/07/23 14:45 Pulse 90 05/07/23 14:45 Respiratory Rate 20 05/07/23 14:45 Respiratory Effort Normal 05/07/23 14:49 Blood Pressure 165/80 H 05/07/23 14:45 Blood Pressure Position Sitting 05/07/23 14:45 Pulse Oximetry 99 05/07/23 14:45 Oxygen Delivery Method Room Air 05/07/23 14:45 Oxygen Flow Rate 0 05/07/23 14:45 Procedures <Miriam Hughes NP - Last Filed: 05/11/23 12:23> Nerve Block Nerve Block 1: Time out performed: Yes Local Anesthetic: Lidocaine 1% and Bupivicaine 0.5% Amount of anesthesia used (mL): 5 Side: right Nerve Blocks: digital (4 sided ring block) Procedure Successful: Yes Patient Tolerated Procedure: well Complications: none <BROOKE Harley - Last Filed: 05/07/23 19:52> Laceration Laceration 1: Site: hand Side (If applicable): right Size (cm): 1 Description: irregular Depth: simple, single layer Skin layer closed with: other (chromic) Size (cm): 3-0 Sign Out <Miriam Hughes NP - Last Filed: 05/11/23 12:23> Sign Out Data: Sign Out Comment: Signed out pending XR results, lac repair,and Dispo. Last updated by Miriam Hughes NP at 05/07/23 15:47
[2023-05-07] MEDS: Cephalexin 500 MG CAP, 4 CAPS/BTL PO (17:22)
== END 2023-05-07 17:30 | disposition home or self-care (01) ==
PROVIDERS: Emergency Provider Physician Assistant
DX: S62.614B Displaced fracture of proximal phalanx of right ring finger, initial encounter for open fracture (principal); X58.XXXA Exposure to other specified factors, initial encounter; Y93.89 Activity, other specified; Y92.89 Other specified places as the place of occurrence of the external cause
CPT/HCPCS: 12001; 99283; 73140

== ENCOUNTER 2023-07-22 11:43 | Outpatient (REF) | payer SELFPAY ==
[2023-07-22 16:19] LABS: Bacteria Rare HPF (Negative); C & S Indicated? C&S Done As Ordered; Casts Negative LPF (Negative); Crystals Negative HPF (Negative); Epithelial Cells Many HPF (Negative); Mucus Negative (Negative); Other Cells Rare Transitional (Negative); RBC 0-2 HPF (0-2)
== END 2023-07-22 11:44 | disposition home or self-care (01) ==
LOC: NCHCN 11:43
PROVIDERS: PCP Physician Assistant; Referring Provider Student in an Organized Health Care Education/Training Program; Visit Provider Student in an Organized Health Care Education/Training Program
DX: R21 Rash and other nonspecific skin eruption (principal)
CPT/HCPCS: 81015; 87086

== ENCOUNTER 2023-08-04 03:11 | Outpatient (CLI) | payer SELFPAY ==
[2023-08-04 17:05] LABS: FSH 2.1 mIU/mL (1.4-18.1)
[2023-08-10 09:48] LABS: Testosterone, Free 17.5 ng/dL (5.25-20.7); Testosterone, Total 606 ng/dL (240-950)
== END 2023-08-04 03:12 | disposition home or self-care (01) ==
LOC: LBO 03:11
PROVIDERS: PCP Physician Assistant; Visit Provider Student in an Organized Health Care Education/Training Program
DX: N46.11 Organic oligospermia (principal)
CPT/HCPCS: 36415; 84402; 84403; 83001; 83002